=== PATIENT | female | born 1980 | race Caucasian/White ===

== ENCOUNTER 2016-06-24 10:56 | Emergency (ER) | payer MEDICARE, MEDICAID ==
[2016-06-24] MEDS ORDERED: Acetaminop/Codeine 30 MG TAB* 1 TAB (300 MG/30 MG) PO ONE (13:24)
[2016-06-24 14:01] LABS: Urine Bacteria Absent (Absent); Urine Bilirubin Negative (Negative); Urine Glucose Negative (Negative); Urine Nitrite Negative (Negative)
[2016-06-24 14:32] VITALS: BP 108/70
--- NOTE | 2016-06-24 17:23 | ED ---
Back Pain - HPI Summary HPI Summary: Patient is an otherwise healthy 36 year old female with history of kidney infections arrives to ED with bilateral back pain which started last evening. Denies urinary symptoms. Denies trauma or injury to the back and denies previous back injuries. She notes to episodes of diarrhea through the night and 1 episode of nausea but no vomiting. Pain in back is 10/10 and intermittent. She is currently breast feeding. - History of Current Complaint Hx Obtained From: Patient Onset/Duration: Sudden Onset Onset/Duration: Started Hours Ago Timing: Constant Back Pain Location: Is Discrete @ - bilateral flank pain Severity Initially: Moderate Severity Currently: Moderate Pain Intensity: 1 Pain Scale Used: 0-10 Numeric Character: Sharp Aggravating Symptom(s): Nothing Alleviating Symptom(s): Nothing Associated Signs And Symptoms: Positive: Negative, Abdominal Pain - Risk Factors AAA Risk Factors: Negative TAD Risk Factors: Negative Cauda Equina Risk Factors: Negative Epidural Abscess Risk Factors: Negative <Xena Griffith - Last Filed: 06/24/16 17:31> <Brayan Albarran - Last Filed: 06/28/16 14:56> - History of Current Complaint Chief Complaint: EDBackInjuryPain Stated Complaint: LOWER BACK PAIN Time Seen by Provider: 06/24/16 11:29 - Allergies/Home Medications Allergies/Adverse Reactions: Allergies Allergy/AdvReac Type Severity Reaction Status Date / Time Penicillins [PCN] Allergy Unknown Verified 04/17/15 14:38 Reaction Details PMH/Surg Hx/FS Hx/Imm Hx Previously Healthy: Yes Endocrine/Hematology History: Denies: Hx Diabetes Cardiovascular History: Denies: Hx Hypertension, Hx Pacemaker/ICD Respiratory History: Denies: Hx Asthma History: Denies: Hx Dialysis, Hx Renal Disease Sensory History: Denies: Hx Hearing Aid Psychiatric History: Reports: Hx Anxiety, Hx Depression - bipolar, Hx Bipolar Disorder, Other Psychiatric Issues/Disorders - PTSD Denies: Hx Panic Disorder - Surgical History Surgery Procedure, Year, and Place: T&A, 2013 OTOPLASTY EXTERNAL EAR Infectious Disease History: No Infectious Disease History: Denies: Traveled Outside the [place] in Last 30 Days - Social History Occupation: Unemployed Lives: With Family Alcohol Use: None Hx Substance Use: No Substance Use Type: Reports: None Hx Tobacco Use: No Smoking Status (MU): Never Smoked Tobacco <Xena Griffith - Last Filed: 06/24/16 17:31> Review of Systems Constitutional: Negative Eyes: Negative Cardiovascular: Negative Positive: Shortness Of Breath Positive: Abdominal Pain, Vomiting, Diarrhea, Nausea Positive: see HPI, flank pain Musculoskeletal: Negative Positive: Myalgia - bilateral lower back pain Skin: Negative Neurological: Negative Psychological: Normal All Other Systems Reviewed And Are Negative: Yes <Xena Griffith Frida - Last Filed: 06/24/16 17:31> Physical Exam Triage Information Reviewed: Yes Vital Signs On Initial Exam: Initial Vitals Temp Pulse Resp BP Pulse Ox 98.1 F 91 18 113/74 100 06/24/16 11:10 06/24/16 11:10 06/24/16 11:10 06/24/16 11:10 06/24/16 11:10 Vital Signs Reviewed: Yes Appearance: Positive: Well-Appearing, Well-Nourished Skin: Positive: Warm, Skin Color Reflects Adequate Perfusion Eyes: Positive: EOMI, [place] Respiratory/Lung Sounds: Positive: Clear to Auscultation, Breath Sounds Present Cardiovascular: Positive: Normal, RRR <Xena Griffith - Last Filed: 06/24/16 17:31> Vital Signs On Initial Exam: Initial Vitals Temp Pulse Resp BP Pulse Ox 36.7 C 91 18 113/74 100 06/24/16 11:10 06/24/16 11:10 06/24/16 11:10 06/24/16 11:10 06/24/16 11:10 <Brayan Albarran - Last Filed: 06/28/16 14:56> Diagnostics - Vital Signs Vital Signs Temp Pulse Resp BP Pulse Ox 06/24/16 14:30 98.1 F 81 15 108/70 06/24/16 12:45 98.0 F 87 16 109/61 100 06/24/16 11:10 98.1 F 91 18 113/74 100 - Laboratory Lab Results: Lab Results 06/24/16 Range/Units 13:20 Urine Color Yellow Urine Appearance Clear Urine pH 7.0 (5-9) Ur Specific [place] 1.024 (1.010-1.030) Urine Protein Negative (Negative) Urine Ketones Negative (Negative) Urine Blood 2+ H (Negative) Urine Nitrate Negative (Negative) Urine Bilirubin Negative (Negative) Urine Urobilinogen Negative (Negative) Ur Leukocyte Esterase Negative (Negative) Urine WBC (Auto) Trace(0-5/hpf) (Absent) Urine RBC (Auto) 1+(3-5/hpf) H (Absent) Ur Squamous Epith Cells Present H (Absent) Urine Bacteria Absent (Absent) Urine Glucose Negative (Negative) Lab Statement: Any lab studies that have been ordered have been reviewed, and results considered in the medical decision making process. <Xena Griffith - Last Filed: 06/24/16 17:31> - Vital Signs Vital Signs Temp Pulse Resp BP Pulse Ox 06/24/16 14:30 36.7 C 81 15 108/70 06/24/16 12:45 36.7 C 87 16 109/61 100 06/24/16 11:10 36.7 C 91 18 113/74 100 - Laboratory Lab Results: Lab Results 06/24/16 Range/Units 13:20 Urine Color Yellow Urine Appearance Clear Urine pH 7.0 (5-9) Ur Specific [place] 1.024 (1.010-1.030) Urine Protein Negative (Negative) Urine Ketones Negative (Negative) Urine Blood 2+ H (Negative) Urine Nitrate Negative (Negative) Urine Bilirubin Negative (Negative) Urine Urobilinogen Negative (Negative) Ur Leukocyte Esterase Negative (Negative) Urine WBC (Auto) Trace(0-5/hpf) (Absent) Urine RBC (Auto) 1+(3-5/hpf) H (Absent) Ur Squamous Epith Cells Present H (Absent) Urine Bacteria Absent (Absent) Urine Glucose Negative (Negative) Lab Statement: Any lab studies that have been ordered have been reviewed, and results considered in the medical decision making process. <Brayan Albarran - Last Filed: 06/28/16 14:56> Back Pain Course/Dx <Xena Griffith - Last Filed: 06/24/16 17:31> <Brayan Albarran - Last Filed: 06/28/16 14:56> - Diagnoses Provider Diagnoses: Gastroenteritis Discharge <Xena Griffith - Last Filed: 06/24/16 17:31> <Brayan Albarran - Last Filed: 06/28/16 14:56> - Discharge Plan Condition: Stable Disposition: HOME Prescriptions: Ibuprofen TAB* [Motrin TAB* 600 MG] 600 mg PO Q6H PRN #20 tab PRN Reason: Pain Lidocaine PATCH 5%* [Lidoderm 5% Patch*] 1 patch TRANSDERM DAILY #5 patch Ondansetron ODT TAB* [Zofran 4 MG Odt TAB*] 4 mg PO Q6H PRN #15 tab.odt PRN Reason: Nausea Patient Education Materials: Gastroenteritis (ED) Referrals: No Primary Care Phys,NOPCP [Primary Care Provider] - Additional Instructions: Lidocaine patches daily for 12 hours for back pain. If you are having episodes of vomiting, you may become dehydrated. Drink plenty of fluids. If you feel you cannot keep enough fluids down, you may supplement with drinks like Gatorade or V8 juice. This will help balance your electrolytes which are lost during dehydration. Take any medication prescribed to you as directed. Zofran: This medicine may make you dizzy. Do not drive or do anything else that could be dangerous until you know how this medicine affects you. Slowly introduce foods into your diet that you can tolerate. Examples of low reactive foods are crackers, soup, rice, and breads. If you have any questions regarding your medications, you may call the office or your pharmacist. If your symptoms fail to improve or worsen, please call your primary care provider or seek other medical attention.
== END 2016-06-24 14:30 | disposition home or self-care (01) ==
LOC: ED 10:56
DX: K52.9 Noninfective gastroenteritis and colitis, unspecified (principal); M54.5 Low back pain; R10.9 Unspecified abdominal pain; R11.2 Nausea with vomiting, unspecified; R19.7 Diarrhea, unspecified; R06.02 Shortness of breath
CPT/HCPCS: 81003; 81015; 99282; A9270-GY